=== PATIENT | male | born 1960 | race Two or more races ===

== ENCOUNTER 2017-12-10 09:04 | Day surgery (SDC) | payer BC ==
[~2017-12-10 09:04] MED LIST: Lactated Ringers 1,000 ML IV SCH; Sodium Chloride 0.9% 5 ML Syringe FLUSH PRN
[2017-12-10] MEDS ORDERED: Propofol 200 MG/20 ML SDV ONE (09:44)
[2017-12-10] MEDS ORDERED: fentaNYL 100 MCG/2 ML SDV ONE (09:44)
[2017-12-10] MEDS ORDERED: Midazolam 1 MG/ML 2 ML SDV ONE (09:44)
[2017-12-10] MEDS ORDERED: Midazolam 1 MG/ML 2 ML SDV IV ONE (09:50)
[2017-12-10] MEDS ORDERED: fentaNYL 100 MCG/2 ML SDV IV ONE (09:50)
[2017-12-10] MEDS ORDERED: Propofol 200 MG/20 ML SDV IV ONE (09:50)
--- NOTE | 2017-12-10 09:53 | PCM.PN ---
- General Info Date of Service: 12/10/17 - Review of Systems Systems Review Comment:: 57 y/o male with history of recent change in bowel habits and rectal bleeding here for colonoscopy. His only previous colonoscopy was over 10 years ago. He states that exam was normal. He is medically stable to proceed with no significant changes from his recent H and P. I have discussed the proposed Colonoscopy with the patient. Risks such as but not limited to bleeding and GI injury reviewed and he agrees to proceed. - Patient Data Vitals - Most Recent: Last Vital Signs Temp 97.8 F 12/10/17 09:08 Pulse 65 12/10/17 09:08 Resp 16 12/10/17 09:08 BP 115/81 12/10/17 09:08 Pulse Ox 97 12/10/17 09:08 Med Orders - Current: Current Medications Lactated Ringer's (Ringers, Lactated) 1,000 mls @ 50 mls/hr IV ASDIRECTED EVETTE Last Admin: 12/10/17 09:40 Dose: 50 mls/hr Sodium Chloride (Syrex Flush) 5 ml FLUSH Q8HR PRN PRN Reason: Keep Vein Open Discontinued Medications Fentanyl (Sublimaze) Confirm Administered Dose 100 mcg .ROUTE .STK-MED ONE Stop: 12/10/17 09:45 Midazolam HCl (Versed 1 Mg/Ml) Confirm Administered Dose 2 mg .ROUTE .STK-MED ONE Stop: 12/10/17 09:45 Propofol (Diprivan 20 Ml) Confirm Administered Dose 200 mg .ROUTE .STK-MED ONE Stop: 12/10/17 09:45 - Problem List Review Problem List Initiated/Reviewed/Updated: Yes - My Orders Last 24 Hours: My Active Orders 12/09/17 16:50 Resuscitation Status Routine 12/10/17 09:00 Patient to Empty Bladder [RC] ASDIRECTED Peripheral IV Care [RC] . DIRECTED Verify Patient Consent Obtain [RC] ASDIRECTED Lactated Ringers [Ringers, Lactated] 1,000 ml IV ASDIRECTED Sodium Chloride 0.9% [Syrex Flush] 5 ml FLUSH Q8HR PRN Peripheral IV Insertion Adult [OM.PC] Routine 12/10/17 Breakfast Nothing Per Oral Diet [DIET] - Assessment Assessment:: Rectal Bleeding Change in Bowel Habits - Plan Plan:: Colonoscopy
--- NOTE | 2017-12-10 10:25 | PCM.OPNOTE ---
- General Post-Op/Procedure Note Date of Surgery/Procedure: 12/10/17 Operative Procedure(s): Colonoscopy with Biopsy Findings: Acute inflammation of mucosa in Rectum and Sigmoid colon up to about the 30 cm level. Colon appears normal above that level Pre Op Diagnosis: Rectal Bleeding Post-Op Diagnosis: Colitis Anesthesia Technique: MAC Primary Surgeon: Asif Trujillo Pathology: Biopsies of Sigmoid Colon and Rectum EBL in mLs: 3 Complications: None Condition: Good
--- NOTE | 2017-12-10 18:26 | PROC ---
PROVIDER: Asif Trujillo MD PRE-PROCEDURE DIAGNOSIS: Change in bowel habits and rectal bleeding. POST-PROCEDURE DIAGNOSIS: Colitis. PROCEDURE PERFORMED: Colonoscopy with biopsy. INDICATIONS FOR SURGERY: This 57-year-old male has had a recent change in bowel habits with mucus in his stools and some rectal bleeding. He is referred for colonoscopy. His last colon exam was over 10 years ago. FINDINGS: The patient has visible evidence of acute inflammation of the mucosa of the rectum and sigmoid colon. This extends from the anal verge up to approximately the 30 cm level in the sigmoid colon. The colon above this level is normal with normal-appearing mucosa and normal-appearing terminal ileum. PROCEDURE: The patient was taken to the operating room. He was given intravenous sedation, and with him in the left lateral decubitus position, digital rectal exam was performed showing no rectal masses. The Olympus colonoscope was inserted into the rectum. Retroflexed examination of the rectal canal was performed. Acute inflammation was noted in the rectum and sigmoid colon, and biopsies from these levels were taken. The scope was then carefully advanced under direct visualization through the entire length of the colon until the cecum was reached. Cecal acquisition was confirmed by noting the normal internal cecal anatomy including the appendiceal orifice and ileocecal valve. The light was also noted to transilluminate the abdominal wall in the right lower quadrant. The ileocecal valve was cannulated and the terminal ileum was examined and also appeared normal. The scope was then slowly withdrawn sequentially re-examining the colonic segments until the entire colon and rectum had been fully examined. The scope was then removed and the patient was taken from the operating room in satisfactory condition. Estimated blood loss was less than 5 mL. COMPLICATIONS: None. PROGNOSIS: Good. /[id number]/MODL
== END 2017-12-10 12:05 | disposition home or self-care (01) ==
LOC: KA.SDS 09:04
PROVIDERS: ATTEND Surgery
DX: K52.89 Other specified noninfective gastroenteritis and colitis (principal); Z79.899 Other long term (current) drug therapy
CPT/HCPCS: 45380; J2250; J2704; J3010; J7120